=== PATIENT | male | born 1995 | race Caucasian/White ===

== ENCOUNTER 2020-11-15 13:25 | Emergency (ER) | payer MEDICAID, SELFPAY ==
[2020-11-15 13:26] VITALS: BP 133/95; PULSE 79; RESP 18; TEMP 36.7; O2SAT 98; BMI 28.5
[2020-11-15 13:44] LABS: Microscopic, Urine URINE MICROSCOPIC (MICROSCOPIC)
[2020-11-15 13:47] LABS: Appearance,Urine CLEAR (Clear); Bilirubin,Urine 1+ (Negative); Blood, Urine 3+ (Negative); Color,Urine YELLOW (Yellow); Glucose,Urine (UA) Negative (Negative); Ketones,Urine TRACE (Negative); Leukocyte Esterase,Urine Negative (Negative); Nitrate,Urine Negative (Negative); Protein,Urine TRACE (Negative); Specific Gravity, Urine 1.025 (1.005-1.030); Urobilinogen,Urine 0.2 EU/dl (0.2)
--- NOTE | 2020-11-15 14:01 | CT_ITS ---
PROCEDURE: CT ABDOMEN PELVIS WO CON CLINICAL INDICATION: L flank pain COMPARISON: CT ABDPELW/O CT ABD PELVIS W/O CONTRAST from 09/21/2015 TECHNIQUE: Axial images obtained with sagittal and coronal reformats. All CT scans at the facility use one or more dose reduction, viz: automated exposure control, ma/kV adjustment per patient size (including targeted exams where dose is matched to indication, i.e. head), or iterative reconstruction technique. FINDINGS: LOWER THORAX: No acute finding ABDOMEN & PELVIS: Status post cholecystectomy. The liver, spleen, adrenal glands, and pancreas have an unremarkable appearance without contrast. There are at least 2 left renal calculi in the upper pole at 3 mm and in the mid polar region at 6 mm. There also appears to be a 12 mm left mid polar renal cyst. There is a 4 mm stone at the left ureterovesical junction projecting toward the lumen of the urinary bladder. There is minimal left ureteral dilatation. No intestinal obstruction or free air. No evidence of appendicitis. No pelvic mass or abnormal fluid collection. There is some minimal prominence of the jejunal loops in the left upper quadrant nonspecific. No acute bony anomalies. IMPRESSION: 4 mm left ureterovesical junction stone with mild dilatation of the left ureter and left-sided nephrolithiasis. Mild prominence of jejunal bowel loops nonspecific. Enteritis is a consideration. Dictated by: Lee Georges MD 11/15/2020 14:38 Lee Georges MD in [place] 11/15/2020 14:38
[2020-11-15 14:02] LABS: Basophils # 0.1 K/mm3 (0-0.2); Basophils % 0.6 % (0.1-2.0); Chloride 104 mmol/L (98-107); Eosinophils # 0.2 K/mm3 (0.0-0.4); Eosinophils % 2.7 % (0.1-12.0); Hematocrit 46.8 % (42.0-52.0); Lymphocytes # 1.9 K/mm3 (0.7-4.5); Mean Corpuscular HGB Conc 34.3 g/dL (31.8-35.4); Mean Corpuscular Hemoglobin 29.5 pg (27.0-31.2); Mean Corpuscular Volume 86.1 fl (80-94); Mean Platelet Volume 6.6 fl (7.4-10.4); Monocytes # 0.4 K/mm3 (0.1-1.0); Monocytes % 4.5 % (1.7-9.3); Neutrophils % 70.2 % (37.0-80.0); Platelet Count 279 K/mm3 (142-424); Red Blood Count 5.43 M/mm3 (4.60-6.20); Red Cell Distribution Width 12.7 % (11.5-17.5); White Blood Count 8.5 K/mm3 (4.8-10.8)
[2020-11-15 14:03] LABS: Potassium 3.9 mmoL/L (3.5-5.1); Sodium 141 mmol/L (136-145)
[2020-11-15 14:05] LABS: Alanine Aminotransferase 54 U/L (12-78); Aspartate Amino Transferase 35 U/L (17-59); Blood Urea Nitrogen 12 mg/dl (9-20); Creatinine Clearance Estimated 187 mL/min (50-200); Estimated Glomerular Filt Rate 116 ml/min (>60); GFR (African American) 140 ML/MIN (>60)
[2020-11-15 14:06] LABS: Albumin Level 4.4 g/dl (3.5-5.0); Albumin/Globulin Ratio 1.6 (1.1-1.8); Alkaline Phosphatase 123 U/L (38-126); Anion Gap 13.9 mEq/L (5-15); Bilirubin,Total 0.9 mg/dl (0.2-1.3); Calcium 8.9 mg/dl (8.4-10.2); Carbon Dioxide 27 mmol/L (22.0-30.0); Globulin 2.8 g/dL (1.3-3.2); Glucose 114 mg/dl (74-100); Total Protein,Serum 7.2 g/dl (6.3-8.2)
[2020-11-15 14:16] LABS: Bacteria,Urine 2+ /lpf; Mucus,Urine 3+ /lpf; Squamous Epithelial Cell,Urine Occasional #/hpf (0-5)
--- NOTE | 2020-11-15 14:48 | [facility].EDGENADL ---
ED Disposition Clinical Impression: Renal colic, Ureterolithiasis Disposition: Home, Self-Care Condition on Discharge: Good Instructions: DI for Low Back Pain Prescriptions: Ketorolac Tromethamine [Toradol 10mg tablet] 10 mg PO Q6HP #16 tab MDD 40mg/day Transmission Status: Pending to [facility] Tamsulosin HCl [Flomax 0.4mg capsule] 0.4 mg PO HS #30 cap Transmission Status: Pending to [facility] Hydrocodone/Acetaminophen [Hydrocodone-Acetamin 5-325 mg] 1 tab PO TID PRN #12 tab PRN Reason: Severe Pain Transmission Status: [facility] Ondansetron [Zofran 4mg ODT] 4 mg PO TIDP PRN #10 tab PRN Reason: Nausea Transmission Status: Pending to [facility] Referrals: Elenita Snyder [Primary Care Provider] - Rafael Thomas MD [Staff Physician] - (call today for appt ) Time of Disposition: 15:38 - Critical Care Critical Care Time: No Attestation: On 11/15/20, the high probability of a clinically significant, sudden or life threatening deterioration of the following system(s) required my full and direct attention, intervention and personal management. The time I documented below is in addition to time spent performing reported procedures but includes the following listed in this critical care notation. Medical Decision Making - Medical Records Medical records reviewed: Yes: I reviewed the patient's medical records. - [place] Inquiry Pt receiving controlled substance: No Vital Signs: 11/15/20 13:26 Temperature 98.1 F Temperature Source Oral Pulse Rate [Right] 79 Respiratory Rate 18 Blood Pressure [Right Arm] 133/95 H Blood Pressure Mean [Right Arm] 107 02 Sat by Pulse Oximetry 98 Oxygen Delivery Method Room Air - Lab Data Lab results reviewed: Yes: I reviewed the patient's lab results. Lab Results 11/15/20 13:35: Urine Color Yellow, Urine Appearance Clear, Urine pH 6.0, Ur Specific [place] 1.025, Urine Protein Trace, Urine Glucose (UA) Negative, Urine Ketones Trace, Urine Blood 3+, Urine Nitrate Negative, Urine Bilirubin 1+ A, Urine Urobilinogen 0.2, Ur Leukocyte Esterase Negative, Urine RBC 10-20, Urine WBC 10-20, Ur Squamous Epith Cells Occasional, Urine Bacteria 2+, Urine Mucus 3+ 11/15/20 13:48: WBC 8.5, RBC 5.43, Hgb 16.0, Hct 46.8, MCV 86.1, MCH 29.5, MCHC 34.3, RDW 12.7, Plt Count 279, MPV 6.6 L, Neut % (Auto) 70.2, Lymph % (Auto) 22.0, [place] % (Auto) 4.5, Eos % (Auto) 2.7, Baso % (Auto) 0.6, Neut # (Auto) 6.0, Lymph # (Auto) 1.9, [place] # (Auto) 0.4, Eos # (Auto) 0.2, Baso # (Auto) 0.1 11/15/20 13:48: Sodium 141, Potassium 3.9, Chloride 104, Carbon Dioxide 27, Anion Gap 13.9, BUN 12, Creatinine 0.80, Estimated Creat Clear 187, Estimated GFR 116, Est GFR ( Amer) 140, Glucose 114 H, Calcium 8.9, Total Bilirubin 0.9, AST 35, ALT 54, Alkaline Phosphatase 123, Total Protein 7.2, Albumin 4.4, Globulin 2.8, Albumin/Globulin Ratio 1.6 Result diagrams: 11/15/20 13:48 11/15/20 13:48 Orders (Tests/Meds): ED MEDICATIONS Discontinued Medications Generic Name Dose Route Start Last Admin Trade Name Freq PRN Reason Stop Dose Admin Ketorolac Tromethamine 15 mg 11/15/20 14:48 11/15/20 14:53 Ketorolac 30mg/Ml Vial IV 11/15/20 14:49 15 mg ONCE ONE Administration Ondansetron HCl 4 mg 11/15/20 14:48 11/15/20 14:54 Ondansetron 4mg/2ml Vial IV 11/15/20 14:49 4 mg ONCE ONE Administration ORDERS Category Date Time Status Urine Culture Stat Micro 11/15/20 13:35 Received - CT Data CT Scan: Abdomen, Pelvis Time Received: 14:[address] Reviewed: Yes: I have reviewed the patient's CT results Preliminary Findings: Abnormal Findings Narrative: 4 mm stone left UVJ Medical Decision Narrative: 25yo M with 4 mm left-sided UVJ. Has had kidney stones in the past and establish Dr. Thomas. Treated with Toradol in the emergency department sent home with Toradol, hydrocodone, Flomax, Zofran. General Adult HPI - General Chief
[2020-11-15 15:56] VITALS: BP 132/80; PULSE 72; RESP 16; TEMP 36.7; O2SAT 99
== END 2020-11-15 15:56 | disposition home or self-care (01) ==
PROVIDERS: Emergency Provider Family Medicine; PCP Nurse Practitioner Family
DX: N20.1 Calculus of ureter (principal)
CPT/HCPCS: 74176; 80053; 81001; 85025; 87086; 96374; 96375; 99283; J2405

== ENCOUNTER → 2020-11-17 14:46 | Outpatient (CLI) | payer MEDICAID, SELFPAY ==
--- NOTE | 2020-11-17 14:50 | XR_ITS ---
PROCEDURE: XR KUB CLINICAL INDICATION: ureteral stone COMPARISON: CR KUB KUB (SINGLE VIEW) from 09/19/2016 FINDINGS: Two small stones are present in the left mid renal area at 2 and 3 mm. No definite ureteral calculus. IMPRESSION: Left nephrolithiasis Dictated by: Lee Georges MD 11/17/2020 15:41 Lee Georges MD in [place] 11/17/2020 15:41
== END ==
PROVIDERS: PCP Nurse Practitioner Family; Visit Provider Urology
DX: N20.1 Calculus of ureter (principal)
CPT/HCPCS: 74018

== ENCOUNTER → 2022-01-25 10:09 | Outpatient (CLI) | payer MEDICAID, SELFPAY ==
--- NOTE | 2022-01-25 10:14 | CT_ITS ---
FINAL REPORT CLINICAL HISTORY: STONE PROTOCOL, LT SIDED PAIN COMPARISON: 11/15/2020 FINDINGS: Axial CT images of the abdomen and pelvis were obtained without intravenous contrast. Coronal reformatted images were also obtained.This study was performed with techniques to keep radiation doses as low as reasonably achievable (ALARA). Individualized dose reduction techniques using automated exposure control or adjustment of mA and/or kV according to the patient''s size were employed. Abdomen: The lung bases are clear. There is no right renal stone or hydronephrosis. There is a left renal stone versus 2 adjacent stones in the left mid kidney measuring 4 mm. There is apparently focal caliectasis adjacent to this which is stable. There is no hydronephrosis. The patient is status post cholecystectomy. The liver, spleen and pancreas have an unremarkable, unenhanced appearance. No mass or adenopathy is seen. No inflammatory process is identified. Pelvis: The appendix is normal. The urinary bladder is unremarkable. There is no free fluid or adenopathy. IMPRESSION: Left renal stone versus 2 adjacent stones with apparent, stable focal caliectasis adjacent to this without hydronephrosis. No mass or inflammatory process. Reviewed, Interpreted and Dictated by Terry Soni III, MD Transcribed by Rosalie Choudhury Authenticated and [facility]
== END ==
PROVIDERS: PCP Nurse Practitioner Family; Visit Provider Nurse Practitioner Family
DX: N20.0 Calculus of kidney (principal)
CPT/HCPCS: 74176